=== PATIENT | female | born 2000 | race Caucasian/White ===

== ENCOUNTER 2020-05-09 14:37 | Emergency (ER) | payer OTHER, SELFPAY ==
[2020-05-09 14:49] VITALS: BP 113/60; PULSE 88; RESP 18; TEMP 37.2; O2SAT 100
--- NOTE | 2020-05-09 15:02 | ED.FEMALEGU ---
HPI - Female Genitourinary General Chief complaint: Urogenital-Female Stated complaint: Urogenital-female Source: patient Mode of arrival: ambulatory Limitations: no limitations History of Present Illness HPI Narrative: Patient is a 19-year-old female who presents complaining of urinary frequency, burning and dysuria x5 days. She also reports lower back pain. She reports taking [id number] Azo with limited relief. She reports a history of frequent UTIs. She denies possibility of or STDs. She denies all other complaints. MD elicited complaint: UTI Related Data Allergies Allergy/AdvReac Type Severity Reaction Status Date / Time nitrofurantoin AdvReac Nausea Verified 05/09/20 15:01 [From [employer]] Review of Systems Review of Systems: Narrative: CONSTITUTIONAL: Denies fever, chills, or sweats. EYES: Denies visual changes, redness, or discharge. ENT: Denies rhinorrhea, congestion, sore throat, or otalgia. CARDIOVASCULAR: Denies chest pain, palpitations, or edema. RESPIRATORY: Denies cough or dyspnea. GASTROINTESTINAL: Denies abdominal pain, nausea, vomiting, or diarrhea. GENITOURINARY: Reports dysuria, frequency and urgency, denies hematuria. SKIN: Denies rash or itching. MUSCULOSKELETAL: Denies back pain, joint pain, or myalgia. NEUROLOGIC: Denies headache, numbness, dizziness, or weakness. PSYCHIATRIC: Denies anxiety or depression. [facility] Past Medical History Medical History Ovarian cyst Surgical History Surgical History History of removal of ovarian cyst Social History Social History (Updated 05/09/20 @ 15:06 by DARYA Davis) Smoking status: Never smoker Alcohol intake: current Substance use: current Living arrangements: with family Exam Narrative: Exam Narrative: GENERAL: Well-appearing, well-nourished, and in no acute distress. HEAD: Normocephalic, atraumatic. EYES: EOMI. No redness or drainage. ENT: Mucous membranes pink and moist. CHEST: No respiratory distress. GI: Soft, nontender without rebound, or guarding. No CVA tenderness with palpation EXTREMITIES: Normal range of motion. SKIN: Warm, dry, no rash. NEURO: No focal deficits. Alert and oriented x3. Gait steady. PSYCH: Normal affect. No signs of depression or anxiety. Course Vital Signs Vital signs: Vital Signs Temperature 37.2 C 05/09/20 14:49 Pulse Rate 88 05/09/20 14:49 Respiratory Rate 18 05/09/20 14:49 Blood Pressure 113/60 05/09/20 14:49 Pulse Oximetry 100 05/09/20 14:49 Temperature 37.2 C 05/09/20 14:49 Pulse Rate 88 05/09/20 14:49 Respiratory Rate 18 05/09/20 14:49 Blood Pressure 113/60 05/09/20 14:49 Pulse Oximetry 100 05/09/20 14:49 Reviewed MDM - Female Genitourinary MDM Narrative Medical decision making narrative: Patient has leuks and nitrates in her urine. Patient is symptomatic and will be treated at this time for UTI. Patient given Keflex p.o., discussed with patient if symptoms become worse, she develops a fever or pelvic pain, to please go to the emergency department for further evaluation. Patient agrees with Plan of care, patient is stable for discharge to home with outpatient follow-up as discussed. Differential Diagnosis Differential diagnosis: Likely urinary tract infection and cystitis Medical Records Attestation: I reviewed the patient's medical records. Lab Data Labs: UCG Bedside Result Negative Reference Range: Negative Urine Glucose Negative Reference Range: Negative Urine Bilirubin Negative Reference Range: Negative Urine Ketone Negative Reference Range: Negative Uri
== END 2020-05-09 15:18 | disposition home or self-care (01) ==
PROVIDERS: Emergency Provider Nurse Practitioner; PCP Pediatrics
DX: N39.0 Urinary tract infection, site not specified (principal)
CPT/HCPCS: 81003; 81025; 87077; 87086; 87088; 87186; 99213; G0463

== ENCOUNTER → 2021-01-09 11:13 | Outpatient (CLI) | payer OTHER, SELFPAY ==
--- NOTE | ~2021-01-09 | US_ITS ---
EXAMINATION: US abdomen complete EXAM DATE: 01/09/2021 11:34 INDICATION: Liver disease . Elevated liver enzymes. Elevated white blood cell count. TECHNIQUE: Multiple grayscale and Doppler images of the complete abdomen were obtained (by a technolo alan who performed the scan) and subsequently reviewed. There is no prior study for comparison. FINDINGS: The abdominal aorta is normal in caliber. Visualized portion IVC is patent. The pancreatic head a nd body are normal in appearance. The pancreatic tail is not visualized. The liver has normal echogenicity and contour. There are no focal liver lesions identified. There is no evidence of intrahepatic biliary duct dilation. Portal venous flow was seen in the hepatopedal , normal direction and has normal Doppler waveform. Common bile duct measures 4 mm, which is normal. The gallbladder wall is normal in thickness, with ex pected amount of distention. No sonographic evidence of pericholecystic fluid. There is no cholelit hiases. Technologist performing exam reports patient did not demonstrate sonographic Gallardo's sign. Please note that this sign is less reliable in patients who have received pain medication. Right kidney: There is normal contour and echogenicity. It measures 1.4 x 2.9 x 5.5 centimeters. T here are no focal renal lesions identified. There is no hydronephrosis. Left kidney: There is normal contour and echogenicity. It measures 10.2 x 4.5 x 4.6 centimeters. T here are no focal renal lesions identified. There is no hydronephrosis. IMPRESSION: 1. Unremarkable complete abdominal ultrasound exam. Reviewed, dictated and finalized at location B.
== END ==
PROVIDERS: Visit Provider Emergency Medicine
DX: K76.9 Liver disease, unspecified (principal)
CPT/HCPCS: 76700

== ENCOUNTER 2021-03-14 01:52 | Emergency (ER) | payer OTHER, SELFPAY ==
[2021-03-14 01:54] VITALS: BP 146/79; PULSE 115; RESP 22; TEMP 36.9; O2SAT 99
--- NOTE | 2021-03-14 02:05 | PC.NURSE ---
Per ANUP Greer, pt does not need bedside sitter or SI precautions.
--- NOTE | 2021-03-14 02:06 | ECG_ITS ---
Measurements Intervals [place] Rate: 112 P: 50 GA: 145 QRS: 66 QRSD: 104 T: 21 QT: 325 QTc: 446 Interpretive Statements SINUS TACHYCARDIA NONSPECIFIC T-WAVE ABNORMALITY- ANT/INF LEADS BASELINE ARTIFACT- II, III, AVR, AVL, AVF, V1-V3 ABNORMAL ECG Electronically Signed On 03-14-2021 6:52:56 CDT by Damir Jensen D.O.
[2021-03-14 02:48] LABS: Basophils Percent Auto 0.2 % (0.2-1.2); Eosinophils Percent Auto 0.4 % (0-4.4); Hematocrit 38.6 % (37.0-47.0); Hemoglobin 12.8 g/dL (12.0-15.0); Immature Granulocyte Absolute 0.03 K/mm3 (0.00-0.031); Immature Granulocyte Percent A 0.4 % (0-0.5); Lymphocytes Absolute Auto 2.51 K/mm3 (0.9-3.2); Lymphocytes Percent Auto 31.1 % (18.3-44.2); Mean Corpuscular HGB Conc 33.2 g/dl (32-36); Mean Corpuscular Volume 90.4 fl (80-100); Mean Platelet Volume 9.1 fl (7.4-10.4); Monocytes Absolute Auto 0.5 K/mm3 (0.1-0.6); Monocytes Percent Auto 6.5 % (2.6-8.5); Neutrophils Percent Auto 61.4 % (45.5-73.1); Platelet Count Result 295 k/mm3 (150-375); Red Blood Count 4.27 M/mm3 (4.2-5.4); Red Cell Distribution Width 12.8 % (11.5-14.5); White Blood Count 8.1 K/mm3 (4.5-10.0)
[2021-03-14 02:53] LABS: Add Urine Microscopic? YES; Appearance Urine Clear (Clear); Bilirubin Urine Negative (Negative); Blood Urine Negative (Negative); Color Urine Yellow (Yellow); Glucose Urine UA Negative (Negative); Ketones Urine Negative (Negative); Leukocyte Esterase Ur Negative LEU/UL (Negative); Mucus Urine Rare /lpf; Nitrate Urine Negative (Negative); Protein Urine 1+ mg/dL (Negative); RBC Urine 0-2 /hpf (0-2); Specific Grav Ur 1.016 (1.001-1.035); Squamous Epithelial Cell Urine Rare /hpf (Few); Urobilinogen Urine Negative mg/dL (<2.0); WBC Urine 0-3 /hpf
--- NOTE | 2021-03-14 02:53 | ED.GENADULT ---
HPI - General Adult General Chief complaint: Psychiatric Symptoms Stated complaint: feels overwhelmed Time Seen by Provider: 03/14/21 02:00 History of Present Illness HPI narrative: Patient 20-year-old female presents the emergency department with chief plaint of feeling depressed. The patient reports that she has been a little bit more depressed lately and reports that she drank today and took her medications. The patient states she is had some auditory hallucinations that she cannot quite localize exactly what the voices are saying reports that she has had some intermittent thoughts of wanting to harm herself but does not have an exact plan. Patient states she does not have a specific plan at this time. Related Data Home Medications Medication Instructions Recorded Confirmed dextroamphetamine-amphetamine 5 mg PO BID 03/14/21 [Adderall] mirtazapine 15 mg PO HS 03/14/21 Allergies Allergy/AdvReac Type Severity Reaction Status Date / Time nitrofurantoin AdvReac Nausea Verified 03/14/21 02:06 [From [employer]] Review of Systems Review of Systems: A 10 system review of systems was completed on the patient and is negative except for what is stated in the HPI. Nursing and ancillary documentation was reviewed. [facility] Past Medical History Medical History Ovarian cyst Surgical History Surgical History History of removal of ovarian cyst Social History Social History Smoking status: Never smoker Alcohol intake: current Substance use: current Substance use type: does not use Exam Narrative: GENERAL: Well-appearing, well-nourished, and in no acute distress. HEAD: Normocephalic, atraumatic. EYES: PERRLA and EOMI. ENT: Nares clear, no rhinorrhea or epistaxis. Mucous membranes moist. NECK: Supple. CHEST: Clear to auscultation. No respiratory distress. HEART: Regular rate and rhythm. No murmur heard. Normal peripheral pulses. ABDOMEN: Soft, nontender, nondistended, normal active bowel sounds. EXTREMITIES: Normal range of motion. No edema. SKIN: Warm, dry, no rash. NEURO: No focal deficits. Alert and oriented x3. PSYCH: Normal mood and affect. Course Course Emergency Course: Patient is medically cleared for psychiatric evaluation Vital Signs Vital signs: Vital Signs Temperature 36.9 C 03/14/21 01:54 Pulse Rate 115 H 03/14/21 01:54 Respiratory Rate 22 H 03/14/21 01:54 Blood Pressure 146/79 H 03/14/21 01:54 Pulse Oximetry 99 03/14/21 01:54 Temperature 36.9 C 03/14/21 01:54 Pulse Rate 106 H 03/14/21 06:15 Respiratory Rate 13 03/14/21 06:15 Blood Pressure 115/66 03/14/21 06:15 Pulse Oximetry 97 03/14/21 06:15 Medical Decision Making Vital Signs Vital Signs: Vital Signs Temperature 36.9 C 03/14/21 01:54 Pulse Rate 115 H 03/14/21 01:54 Respiratory Rate 22 H 03/14/21 01:54 Blood Pressure 146/79 H 03/14/21 01:54 Pulse Oximetry 99 03/14/21 01:54 Temperature 36.9 C 03/14/21 01:54 Pulse Rate 106 H 03/14/21 06:15 Respiratory Rate 13 03/14/21 06:15 Blood Pressure 115/66 03/14/21 06:15 Pulse Oximetry 97 03/14/21 06:15 Lab Data Result diagrams: 03/14/21 02:28 03/14/21 02:28 Labs: Lab Results 03/14/21 03/14/21 03/14/21 Range/Units 02:28 02:28 02:28 WBC 8.1 (4.5-10.0) K/mm3 RBC 4.27 (4.2-5.4) M/mm3 Hgb 12.8 (12.0-15.0) g/dL Hct 38.6 (37.0-47.0) % MCV 90.4 (80-100) fl MCH 30.0 (26-34) pg MCHC 33.2 (32-36) g/dl RDW 12.8 (11.5-14.5) % Plt Count 295 (150-375) k/mm3 MPV 9.1 (7.4-10.4) fl Immature Gran % (Auto) 0.4 (0-0.5) % Neut % (Auto) 61.4 (45.5-73.1) % Lymph % (Auto) 31.1 (18.3-44.2) % [place] % (Auto) 6.5 (2.6-8.5) % Eos % (Auto) 0.4
[2021-03-14 02:57] LABS: Pregnancy On Board Control Positive; Urine Pregnancy Test Negative
[2021-03-14 03:01] LABS: Amphetamine Screen Urine Negative (Negative); Barbiturate Screen Urine Negative (Negative); Benzodiazepines Screen Urine Negative (Negative); Cannabinoid Screen Urine Positive (Negative); Cocaine Screen Urine Negative (Negative); Methadone Screen Urine Negative (Negative); Opiate Screen Urine Negative (Negative); Phencyclidine Screen Urine Negative (Negative)
[2021-03-14 03:04] LABS: Alanine Aminotransferase 25 U/L (4-35); Albumin Level 4.6 g/dL (3.5-5.1); Alkaline Phosphatase 63 U/L (38-126); Anion Gap 13 mmol/L (8-16); Aspartate Amino Transferase 28 U/L (14-36); Bilirubin,Total 0.3 mg/dL (0.2-1.3); Blood Urea Nitrogen 6 mg/dL (7-17); Calcium 9.6 mg/dL (8.4-10.2); Carbon Dioxide 24 mmol/L (22-30); Chloride 112 mmol/L (98-107); Estimated CRCL calculation 86 ml/min; Estimated Glomerular Filt Rate > 60; Glucose 108 mg/dL (65-110); Potassium 3.9 mmol/L (3.4-5.0); Sodium 149 mmol/L (137-145)
[2021-03-14 03:08] VITALS: BP 129/92; PULSE 105; RESP 19; O2SAT 94
[2021-03-14 03:14] LABS: Acetaminophen < 10 ug/mL (10-30); Ethanol 110 mg/dL (<10); Salicylate < 1.0 mg/dL (2-20)
[2021-03-14 03:59] VITALS: BP 115/80; PULSE 98; RESP 20; O2SAT 96
[2021-03-14 04:56] LABS: Ethanol 59 mg/dL (<10)
[2021-03-14 06:15] VITALS: BP 115/66; PULSE 106; RESP 13; O2SAT 97
--- NOTE | 2021-03-14 06:20 | PC.NURSE ---
Crisis at bedside.
--- NOTE | 2021-03-14 06:49 | PC.NURSE ---
Per Crisis, pt to be discharged with safety contract.
[2021-03-14 07:32] VITALS: BP 114/68; PULSE 108; RESP 18; O2SAT 97
== END 2021-03-14 07:34 | disposition home or self-care (01) ==
PROVIDERS: Emergency Provider Emergency Medicine; PCP Emergency Medicine
DX: F32.9 Major depressive disorder, single episode, unspecified (principal); F10.129 Alcohol abuse with intoxication, unspecified; Y90.5 Blood alcohol level of 100-119 mg/100 ml; R00.0 Tachycardia, unspecified; R94.31 Abnormal electrocardiogram [ECG] [EKG]
CPT/HCPCS: 36415; 80053; 80307; 81001; 81025; 84443; 85025; 93005; 99284